=== PATIENT | male | born 1935 | race Caucasian/White ===

== ENCOUNTER 2017-03-26 10:15 | Outpatient (CLI) | payer MEDICARE ==
[2017-03-26 12:07] LABS: Hematocrit 41.7 % (42.0-52.0); Mean Platelet Volume 9.7 fL (7.4-10.4); Red Blood Cell (RBC) Count 4.03 mill/uL (4.70-6.10); White Blood Cell (WBC) Count 4.2 thou/uL (4.8-10.8)
[2017-03-26 12:14] LABS: PTT 27.1 SEC (22.9-36.1); Prothrombin Time 14.1 SEC (12.0-14.7)
[2017-03-26 12:30] LABS: ALT (SGPT) 32 U/L (8-55); AST (SGOT) 47 U/L (5-34); Alkaline Phosphatase 32 U/L (40-150); Anion Gap 10 mmol/L (10-20); BUN (Urea Nitrogen) 19 mg/dL (8.4-25.7); Bilirubin, Total 0.6 mg/dL (0.2-1.2); Calc. Creatinine Clearance 0 mL/min (70-130); Calcium 9.7 mg/dL (7.8-10.44); Carbon Dioxide 28 mmol/L (23-31); Chloride 104 mmol/L (98-107); Cholesterol 140 mg/dl (< 200 Desired); Estimated GFR-MDRD 59; LDL Cholesterol, Calculated 92 mg/dL; Protein, Total 6.9 g/dL (5.8-8.1)
== END 2017-03-26 10:16 | disposition home or self-care (01) ==
LOC: LABBT 10:15
PROVIDERS: ATTEND Internal Medicine Cardiovascular Disease
DX: Z01.818 Encounter for other preprocedural examination (principal); I70.90 Unspecified atherosclerosis; R06.02 Shortness of breath
CPT/HCPCS: 80053; 80061; 85027; 85610; 85730; 93005; 93010

== ENCOUNTER 2017-03-31 05:23 | Day surgery (SDC) | payer MEDICARE ==
[2017-03-26 10:30] VITALS: BMI 36.9
[~2017-03-31 05:23] MED LIST: Iopamidol 370 76% 100 ML VIAL ONE; Iopamidol 370 76% 50 ML VIAL FS ONE
[2017-03-31] MEDS ORDERED: Fentanyl 100 MCG/2 ML VIAL ONE ×2 (07:09→09:17)
[2017-03-31] MEDS ORDERED: Midazolam HCl 2 mg/2 ml Vial ONE ×2 (07:09→08:09)
[2017-03-31] MEDS ORDERED: Heparin 10,000 UNITS/1 ML VIAL ONE ×2 (07:31→07:44)
[2017-03-31] MEDS ORDERED: Heparin 1000 UNIT/NS 500ML(OR) 500 ML ONE (07:44)
[2017-03-31] MEDS ORDERED: Acetaminophen/Codeine 30-300mg Tablet ONE (09:24)
--- NOTE | 2017-03-31 09:27 | CCL ---
DATE OF SERVICE: 03/31/2017 ADDENDUM TO RECENT ANGIOGRAPHY Prior to procedure and prior to sedation, I did discuss proceeding with stent implantation if needed. I discussed the risks and benefits of stent implantation. He did have recent back surgery which he states failed. He continues to have back pain. I discussed drug coated versus non-drug coated sten t placement. He would like to proceed with drug coated stent placement if needed. No contraindicati ons present. I also discussed this with his . During the procedure a stent was placed within the mid right coronary artery. There was a 70% lesion . A 2.5 balloon was initially used and due to the calcification there continued to be stenosis after the 2.5 balloon was used. A 3.0 was then used after the stent would not pass. A second Dasient wir e was also used for support. The stent would not pass the proximal elbow. The 3.0 balloon did prope rly inflate the area of interest. A 3.5 x 12 mm stent was then placed within the area of interest. When removing the balloon from the stent, there appeared to be deep seating of the catheter. After a ----- view was performed, there appeared to be a small dissection in the elbow, likely from catheter deep-seating. A 3.5 x 12 mm Rebel stent was then placed within the proximal portion. There was exc ellent ----- with JACKY 3 flow noted at the end of the study. POS: AJITH
[2017-03-31] MEDS ORDERED: Nitroglycerin 0.4 MG TAB (25 Tab Bottle) SL PRN (10:30)
[2017-03-31] MEDS ORDERED: Fentanyl 100 MCG/2 ML VIAL SLOW IVP SCH (10:30)
[2017-03-31] MEDS ORDERED: Sodium Chloride 0.9% 1,000 ML IV SCH (10:30)
[2017-03-31] MEDS ORDERED: Acetaminophen/Codeine 30-300mg Tablet PO PRN ×2 (10:30)
[2017-03-31] MEDS ORDERED: traMADol HCl 50 MG TAB PO PRN (10:30)
[2017-03-31] MEDS ORDERED: Clopidogrel Bisulfate 75 MG TAB ONE (13:51)
--- NOTE | 2017-04-05 08:38 | EKG ---
Test Reason : POST STENTS X 2 Blood Pressure : / mmHG Vent. Rate : 049 BPM Atrial Rate : 049 BPM P-R Int : 194 ms QRS Dur : 088 ms QT Int : 472 ms P-R-T Axes : 000 059 061 degrees QTc Int : 426 ms Marked sinus bradycardia Abnormal ECG When compared with ECG of 26-MAR-2017 11:05, Premature supraventricular complexes are no longer Present Confirmed by Marlen HARRIS ([id number]) on 04/05/2017 8:38:18 AM Referred By: SHELLY Confirmed By:Marlen HARRIS
== END 2017-03-31 14:40 | disposition home or self-care (01) ==
LOC: CCL 05:23
PROVIDERS: ATTEND Internal Medicine Cardiovascular Disease
DX: I70.213 Atherosclerosis of native arteries of extremities with intermittent claudication, bilateral legs (principal); R06.02 Shortness of breath; E11.9 Type 2 diabetes mellitus without complications; I10 Essential (primary) hypertension; E78.00 Pure hypercholesterolemia, unspecified; Z79.84 Long term (current) use of oral hypoglycemic drugs; Z79.899 Other long term (current) drug therapy; Z88.8 Allergy status to other drugs, medicaments and biological substances; Z98.890 Other specified postprocedural states
CPT/HCPCS: 76942; 85347 ×2; 92928; 93005; 96374; C1725; C1760; C1769 ×3; C1876; C1887; 99152; 99153; J1644; J2250; J3010